=== PATIENT | female | born 1965 | race Hispanic/Latino ===

== ENCOUNTER → 2018-10-04 | Day surgery (SDC) | payer OTHER ==
[~2018-10-04] MED LIST: FENTANYL CITRATE/PF 100MCG/2 ML INJ ONE; METFORMIN HCL500 MG PO; MIDAZOLAM HCL 2 MG/2 ML VIAL ONE; PROPOFOL IV EMULSION 10 MG/ML 50 ML VIAL ONE; blood pressure pill
--- OUTSIDE RECORDS SUMMARY | 2018-10-04 07:01 | XMS REPORT | Clinical Summary ---
Author Author [facility] Organization [facility] Address Unknown Phone Unavailable Care Team Providers Care Kitman Name Role Phone Abbie Law DDS 6 Chance Jenkins MD PCP Allergies Comments Active Allergy Reactions Severity Noted Date Enalapril Cough 12/14/2010 Medications End Date Status Medication Sig Dispensed Refills Start Date Active ALCOHOL SWABS Apply to 100 Each 2 PadMIndications: Diabetes affected 3 mellitus area. Active blood glucose test 2 times 50 Each 3 stripsIndications: weekly to 6 Diabetes mellitus type 2, test blood uncontrolled, without sugar. complications Active lancets 28 2 times 100 Each 1 gaugeIndications: weekly. 6 Diabetes mellitus type 2, uncontrolled, without complications Active lancetsIndications: As directed. 1 Box 12 Diabetes mellitus type 2, 6 uncontrolled, without complications Active blood glucose True Test 1 Kit 0 meterIndications: Glucose Meter 6 Diabetes mellitus type 2, Use as uncontrolled, without directed.. complications Active lancets (TRUEPLUS 2 times 100 Each 5 LANCETS) 28 daily. 7 gaugeIndications: Controlled type 2 diabetes mellitus without complication, without long-term current use of insulin Active blood glucose meter (TRUE Use as 1 Kit 0 METRIX GLUCOSE directed.. 7 METER)Indications: Uncontrolled type 2 diabetes mellitus without complication, without long-term current use of insulin Active blood glucose (TRUE 2 times 50 Each 3 METRIX GLUCOSE TEST weekly to 7 STRIP) test test blood stripsIndications: sugar. Uncontrolled type 2 diabetes mellitus without complication, without long-term current use of insulin Active blood glucose (TRUETEST 2 times daily 100 Each 5 TEST STRIPS) test 8 stripsIndications: Controlled type 2 diabetes mellitus without complication, without long-term current use of insulin Active omeprazole (PRILOSEC) 20 Take 1 90 capsule 1 mg delayed release capsule by 8 capsuleIndications: GERD mouth daily. without esophagitis Active fluticasone (FLONASE Use 1 [place] 16 g 1 ALLERGY RELIEF) 50 in each 8 mcg/actuation nasal nostril sprayIndications: daily. Allergic rhinitis, unspecified seasonality, unspecified trigger Active atorvastatin (LIPITOR) 10 Take 1 tablet 90 tablet 1 mg tabletIndications: by mouth at 9 Uncontrolled type 2 bedtime diabetes mellitus without nightly. complication, without long-term current use of insulin Active hydrocortisone 2.5 % Apply to 20 g 2 topical creamIndications: affected area 9 Rectal itching 2 times daily For hemorrhoids. Active glimepiride (AMARYL) 2 mg Take 1.5 135 tablet 1 tabletIndications: tablets by 9 Uncontrolled type 2 mouth every diabetes mellitus without morning complication, without (before long-term current use of breakfast). insulin Active losartan (COZAAR) 50 mg Take 0.5 45 tablet 1 tabletIndications: tablets by 9 Essential hypertension mouth daily. with goal blood pressure less than 130/80, Uncontrolled type 2 diabetes mellitus without complication, without long-term current use of insulin Active pioglitazone (ACTOS) 15 Take 1 tablet 90 tablet 1 mg tabletIndications: by mouth 9 Uncontrolled type 2 daily. diabetes mellitus without complication, without long-term current use of insulin Active metFORMIN (GLUCOPHAGE-XR) Take 1 tablet 180 tablet 1 500 mg ER extended by mouth 2 9 release times daily. tabletIndications: Uncontrolled type 2 diabetes mellitus without complication, without long-term current use of insulin Active polyethylene glycol Add lukewarm 4000 mL 0 (GOLYTELY) [id number] drinking 9 -5.86 gram oral water to the solutionIndications: Iron fill pedro (4 deficiency anemia, liters) and unspecified iron shake. Drink deficiency anemia type as directed by your doctor.. 03/29/2018 Discontinued LANCETSIndications: use twice 100 5 Diabetes mellitus type daily 0 II, controlled 03/29/2018 Discontinued blood glucose test Use 3x/week 1 Box 12 (PRECISION XTRA TEST 3 STRIPS) stripsIndications: Well woman exam with routine gynecological exam 03/29/2018 Discontinued blood glucose test 2 times daily 100 Each 2 stripsIndications: True Test 6 Diabetes mellitus type 2, Test Strips. uncontrolled, without Check 2-3 complications times per day - Fasting or 2 hrs postprandial. 03/29/2018 Discontinued clotrimazole (LOTRIMIN) 1 Apply 1-2 30 mL 3 % external drops to 6 solutionIndications: affected Dermatophytosis of nail nails 2 times a day. Use a nail file to keep nails thin. Label in Japanese. 03/29/2018 Discontinued meclizine (ANTIVERT) 25 Take 1 tablet 20 tablet 0 mg TabIndications: by mouth 3 6 Dizziness, nonspecific times daily as needed (dizziness.) . May cause sleepiness. Japanese label. 03/29/2018 Discontinued acetaminophen (TYLENOL) Take 1 tablet 30 tablet 0 500 mg tabletIndications: by mouth 6 Acute nonintractable every 6 hours headache, unspecified as needed for headache type Pain. 03/29/2018 Discontinued ofloxacin (OCUFLOX) 0.3 % Instill 5 5 mL 0 ophthalmic Drops in 7 solutionIndications: right ear Otitis externa of right daily for 10 ear, unspecified days.. chronicity, unspecified type 11/06/2017 Discontinued blood glucose (TRUETEST 2 times daily 100 Each 5 TEST STRIPS) test to test blood 7 stripsIndications: sugar. Controlled type 2 diabetes mellitus without complication, without long-term current use of insulin 03/29/2018 Discontinued omeprazole (PRILOSEC) 20 Take 1 90 capsule 1 mg delayed release capsule by 7 capsuleIndications: GERD mouth daily. without esophagitis 03/29/2018 Discontinued atorvastatin (LIPITOR) 10 Take 1 tablet 90 tablet 1 mg tabletIndications: by mouth at 7 Uncontrolled type 2 bedtime diabetes mellitus without nightly. complication, without long-term current use of insulin 02/27/2018 Discontinued metFORMIN (GLUCOPHAGE-XR) Take 2 360 tablet 2 500 mg ER extended tablets by 7 release mouth 2 times tabletIndications: daily. Uncontrolled type 2 diabetes mellitus without complication, without long-term current use of insulin 01/08/2018 Discontinued glimepiride (AMARYL) 2 mg Take 1.5 135 tablet 2 tabletIndications: Poorly tablets by 7 controlled type 2 mouth every diabetes mellitus morning (before breakfast). 03/29/2018 Discontinued benzonatate (TESSALON Take 1 20 capsule 0 PERLES) 100 mg capsule by 7 capsuleIndications: Acute mouth 3 times bronchitis, unspecified daily as organism needed for Cough. 11/06/2017 Discontinued losartan (COZAAR) 50 mg Take 0.5 15 tablet 0 tabletIndications: tablets by 8 Essential hypertension mouth daily. with goal blood pressure less than 130/80, Uncontrolled type 2 diabetes mellitus without complication, without long-term current use of insulin 12/21/2017 Discontinued losartan (COZAAR) 50 mg Take 1/2 15 tablet 0 tabletIndications: tablet by 8 Essential hypertension mouth daily. with goal blood pressure NO REFILLS less than 130/80, WITHOUT APPT. Uncontrolled type 2 First Notice. diabetes mellitus without complication, without long-term current use of insulin 11/21/2017 fluconazole (DIFLUCAN) Take 1 tablet 1 tablet 1 200 mg tabletIndications: by mouth once 8 Vaginal itching for 1 dose May repeat dose in three days if symptoms have not improved. 05/24/2018 Discontinued hydrocortisone 2.5 % Apply to 20 g 0 topical creamIndications: external 8 Vaginal itching vaginal area twice a day as needed for vaginal itching. 03/29/2018 Discontinued losartan (COZAAR) 50 mg Take 1/2 of a 45 tablet 0 tabletIndications: tablet by 8 Essential hypertension mouth with goal blood pressure daily.No less than 130/80, refills Uncontrolled type 2 without PCP diabetes mellitus without appt.. complication, without long-term current use of insulin 03/29/2018 Discontinued glimepiride (AMARYL) 2 mg Take 1 and 135 tablet 0 tabletIndications: Poorly 1/2 tablets 8 controlled type 2 by mouth diabetes mellitus every morning (before breakfast) Schedule PCP appointment for refills.. 03/29/2018 Discontinued metFORMIN (GLUCOPHAGE-XR) Take 2 360 tablet 0 500 mg ER extended tablets by 8 release mouth 2 times tabletIndications: daily Until Uncontrolled type 02 March 2018 diabetes mellitus without Appointment complication, without with PCP. long-term current use of insulin 09/25/2018 tropicamide (MYDRIACYL) Instill 1 15 mL 0 0.5 % ophthalmic Drop in each 8 solutionIndications: eye once as Uncontrolled type 2 needed for up diabetes mellitus without to 1 dose complication, without (for poor long-term current use of retina scan insulin image). 05/24/2018 Discontinued metFORMIN (GLUCOPHAGE-XR) Take 2 360 tablet 1 500 mg ER extended tablets by 8 release mouth 2 times tabletIndications: daily Until Uncontrolled type 02 March 2018 diabetes mellitus without Appointment complication, without with PCP. long-term current use of insulin 05/24/2018 Discontinued losartan (COZAAR) 50 mg Take 1/2 of a 45 tablet 1 tabletIndications: tablet by 8 Essential hypertension mouth with goal blood pressure daily.No less than 130/80, refills Uncontrolled type 2 without PCP diabetes mellitus without appt.. complication, without long-term current use of insulin 05/24/2018 Discontinued glimepiride (AMARYL) 2 mg Take 1.5 135 tablet 1 tabletIndications: tablets by 8 Uncontrolled type 2 mouth every diabetes mellitus without morning complication, without (before long-term current use of breakfast). insulin 05/24/2018 Discontinued atorvastatin (LIPITOR) 10 Take 1 tablet 90 tablet 1 mg tabletIndications: by mouth at 8 Uncontrolled type 2 bedtime diabetes mellitus without nightly. complication, without long-term current use of insulin 04/02/2018 Discontinued ciclesonide (ZETONNA) 37 Use 1 [place] 6.1 g 1 mcg/actuation nasal HFA in each 8 inhalerIndications: nostril Uncontrolled type 2 daily. diabetes mellitus without complication, without long-term current use of insulin 05/24/2018 Discontinued losartan (COZAAR) 50 mg Take 1/2 of a 45 tablet 1 tabletIndications: tablet by 9 Essential hypertension mouth with goal blood pressure daily.No less than 130/80, refills Uncontrolled type 2 without PCP diabetes mellitus without appt.. complication, without long-term current use of insulin 07/19/2018 Discontinued pioglitazone (ACTOS) 30 Take 1 tablet 90 tablet 1 mg tabletIndications: by mouth 9 Uncontrolled type 2 daily. diabetes mellitus without complication, without long-term current use of insulin 07/19/2018 Discontinued metFORMIN (GLUCOPHAGE-XR) Take 2 360 tablet 1 500 mg ER extended tablets by 9 release mouth 2 times tabletIndications: daily. Uncontrolled type 2 diabetes mellitus without complication, without long-term current use of insulin Active Problems Problem Noted Date Iron deficiency - refered for colonoscopy 07/20/2018 Vitamin D deficiency 07/20/2018 Fatigue 07/19/2018 Elevated CO2 level 05/24/2018 Tonsillar enlargement 02/02/2017 Globus sensation 01/17/2017 Odynophagia 01/17/2017 Lingual tonsil hypertrophy 09/06/2016 Hypertriglyceridemia 07/29/2015 Diabetes mellitus type 2, uncontrolled, without complications 07/29/2015 Preventative health care 07/29/2015 Essential hypertension 07/29/2015 BMI 50.0-59.9, adult 10/15/2014 Myopia with astigmatism and presbyopia 04/01/2014 Diabetes mellitus type 2 without retinopathy 04/01/2014 Abdominal pain 02/26/2014 Decay, teeth 03/18/2013 Morbid obesity with body mass index of 45.0-49.9 in adult 12/10/2012 Plantar fasciitis 01/28/2011 Poorly controlled type 2 diabetes mellitus 01/28/2011 History of cholecystectomy 11/17/2008 Metabolic syndrome 06/27/2007 Tinea unguium 01/09/2007 Allergic rhinitis, cause unspecified 01/09/2007 GERD (gastroesophageal reflux disease) 07/31/2006 High triglycerides Fatty liver Encounters Care Team Description Date Type Specialty Chance Jenkins Jr., MD 09/26/2018 Hospital Encounter 09/26/2018 Travel Paty Tierney Abnormal Cancer Screening (anemia) 08/01/2018 Telephone Chance Jenkins Jr., MD Iron deficiency anemia, unspecified iron deficiency anemia type (Primary Dx) 07/20/2018 Orders Only Family Practice Chance Jenkins Jr., MD Fatigue, unspecified type (Primary Dx); Uncontrolled type 2 diabetes mellitus without complication, without long-term current use of insulin 07/19/2018 Office Visit [facility] Zonia Baltazar Interpretation 07/19/2018 Telephone 07/19/2018 Travel Chance Jenkins Jr., MD Snoring (Primary Dx); Uncontrolled type 2 diabetes mellitus without complication, without long-term current use of insulin; Essential hypertension with goal blood pressure less than 130/80; Elevated CO2 level; Rectal itching 05/24/2018 Office Visit [facility] Winston Dumont Interpretation 05/24/2018 Telephone Maty Hubbard MD Breast cancer screening 05/04/2018 Ancillary Radiology Procedure 05/04/2018 Travel Maty Hubbard MD Uncontrolled type 2 diabetes mellitus without complication, without long-term current use of insulin (Primary Dx); Essential hypertension with goal blood pressure less than 130/80; Dizziness, nonspecific; GERD without esophagitis; Dietary counseling for Above / Below Normal BMI; Exercise counseling for Above Normal BMI Only!; Breast cancer screening; Colon cancer screening; Flu vaccine need 03/29/2018 Office Visit [facility] Maty Hubbard MD Allergic rhinitis, unspecified seasonality, unspecified trigger (Primary Dx); Uncontrolled type 2 diabetes mellitus without complication, without long-term current use of insulin 03/29/2018 Refill [facility] Chance Jenkins Jr., MD Uncontrolled type 2 diabetes mellitus without complication, without long-term current use of insulin 02/27/2018 Refill [facility] Chance Jenkins Jr., MD Uncontrolled type 2 diabetes mellitus without complication, without long-term current use of insulin 02/16/2018 Refill [facility] Candy Piedra RN Information Only 02/09/2018 Telephone [facility] Chance Jenkins Jr., MD Poorly controlled type 2 diabetes mellitus 01/15/2018 Refill [facility] Chance Jenkins Jr., MD Poorly controlled type 2 diabetes mellitus 01/08/2018 Refill [facility] Chance Jenkins Jr., MD Essential hypertension with goal blood pressure less than 130/80; Uncontrolled type 2 diabetes mellitus without complication, without long-term current use of insulin 12/21/2017 Refill [facility] Chance Jenkins Jr., MD Labs Only (Needs lab appointment for refill) 12/15/2017 Telephone [facility] Chance Jenkins Jr., MD Essential hypertension with goal blood pressure less than 130/80; Uncontrolled type 2 diabetes mellitus without complication, without long-term current use of insulin 12/09/2017 Refill Family Practice Loly Avalos NP Vaginal itching (Primary Dx); Type 2 diabetes mellitus with complication, without long-term current use of insulin; Uncontrolled Hypertension 11/20/2017 Same Day Family Practice Chance Jenkins Jr., MD Essential hypertension with goal blood pressure less than 130/80; Uncontrolled type 2 diabetes mellitus without complication, without long-term current use of insulin; Controlled type 2 diabetes mellitus without complication, without long-term current use of insulin 11/06/2017 Refill Family Practice after 10/03/2017 Immunizations Name Administration Dates Next Due Influenza Vaccine 03/15/2014, 12/04/2012, 03/16/2010, 02/26/2009, 06/27/2007 Influenza Vaccine, 03/15/2017 Seasonal, Injectable Influenza, 03/29/2018 Vaccine<FLUCELVAX>(Multi- Dose) Pneumoccoccal 08/11/2009 Tdap Tetanus, diphtheria, 12/04/2012 acellular pertussis Vaccine Family History Medical History Relation Name Comments Cancer Mother cervical Diabetes Mother Relation Name Status Comments Brother Alive Brother Alive Brother Alive Daughter Alive Father Alive Maternal Grandfather Maternal Grandmother Mother uterine (Age 62) Paternal Grandfather Paternal Grandmother Sister Alive Sister Alive Sister Alive Sister Alive Sister Alive Sister Alive Sister Alive Sister Alive Son Alive Son Alive Social History Date Tobacco Use Types Packs/Day Years Used Never Smoker Smokeless Tobacco: Never Used Tobacco Cessation: Counseling Given: No Drinks/Week oz/Week Comments Alcohol Use No Food Insecurity Answer Date Recorded Within the past 12 months, you worried that your Never true 03/29/2018 food would run out before you got money to buy more. Within the past 12 months, the food you bought Never true 03/29/2018 just didn't last and you didn't have money to get more. Sex Assigned at Date Recorded Not on file Industry Job Start Date Occupation Not on file Not on file Not on file Travel End Travel History Travel Start No recent travel history available. Last Filed Vital Signs Reading Time Taken Comments Vital Sign 137/67 07/19/2018 2:53 PM CDT Blood Pressure 82 07/19/2018 2:53 PM CDT Pulse 36.3 C (97.4 F) 07/19/2018 2:53 PM CDT Temperature 20 07/19/2018 2:53 PM CDT Respiratory Rate - - Oxygen Saturation - - Inhaled Oxygen Concentration 116.5 kg (256 lb 12.8 oz) 07/19/2018 2:53 PM CDT Weight 152.4 cm (5') 07/19/2018 2:53 PM CDT Height 50.15 07/19/2018 2:53 PM CDT Body Mass Index Plan of Treatment Health Maintenance Due Date Last Done Comments DM Foot Exam (Yearly) 11/20/2018 11/20/2017, 02/01/2017, 12/04/2012, Additional history exists Cervical Cancer Scrn (3 12/16/2018 12/17/2015 (Previously completed - Yrs) External), 12/04/2012, 07/13/2009 Breast Cancer Scrn 05/04/2019 05/04/2018, 10/28/2016, 10/19/2015, (Yearly) Additional history exists Colorectal Cancer Scrn 05/04/2019 05/04/2018 Annual (FIT/FOBT) Age 50 to 75 DM Retinal Exam (Yearly) 05/04/2019 05/04/2018, 04/14/2017, 03/10/2016, Additional history exists DM HGBA1C (Yearly) 07/20/2019 07/19/2018, 03/29/2018, 04/14/2017, Additional history exists Goals Goal Patient Associated Recent Progress Patient-Stat Author Goal Type Problems ed? Eat Healthy Lifestyle Not on track Qian Calhoun, (03/29/2018) Dianna Frances Procedures Comments Procedure Name Priority Date/Time Associated Diagnosis PULMONARY - 6 MINUTE WALK Routine 09/26/2018 EXERCISE TEST - COMPLEX 3:19 PM CDT PULMONARY FUNCTION TEST Routine 09/26/2018 2:25 PM CDT HEMOGLOBIN A1C Routine 07/19/2018 Uncontrolled type 2 3:45 PM CDT diabetes mellitus without complication, without long-term current use of insulin BASIC METABOLIC PANEL Routine 07/19/2018 Fatigue, unspecified type 3:45 PM CDT VIT D, 25-HYDROXY Routine 07/19/2018 Fatigue, unspecified type 3:45 PM CDT VITAMIN B12 Routine 07/19/2018 Fatigue, unspecified type 3:45 PM CDT FOLATE, RBC Routine 07/19/2018 Fatigue, unspecified type 3:45 PM CDT IRON PROFILE Routine 07/19/2018 Fatigue, unspecified type 3:45 PM CDT OPHTHALMOLOGY RETINAL Routine 05/04/2018 Uncontrolled type 2 SCAN 12:52 PM [employer] diabetes mellitus without complication, without long-term current use of insulin FECAL OCCULT BLOOD Routine 05/04/2018 Colon cancer screening 9:57 AM [employer] MAMMOGRAM BILAT SCREEN Routine 05/04/2018 Breast cancer screening DIGITAL 9:11 AM [employer] LIPID PROFILE Routine 03/29/2018 Uncontrolled type 2 10:10 AM [employer] diabetes mellitus without complication, without long-term current use of insulin MICROALBUMIN / CREATININE Routine 03/29/2018 Uncontrolled type 2 URINE RATIO 10:10 AM [employer] diabetes mellitus without complication, without long-term current use of insulin THYROID STIMULATING Routine 03/29/2018 Uncontrolled type 2 HORMONE (TSH) 10:10 AM [employer] diabetes mellitus without complication, without long-term current use of insulin COMPREHENSIVE METABOLIC Routine 03/29/2018 Uncontrolled type 2 PANEL 10:10 AM [employer] diabetes mellitus without complication, without long-term current use of insulin HEMOGLOBIN A1C Routine 03/29/2018 Uncontrolled type 2 10:10 AM [employer] diabetes mellitus without complication, without long-term current use of insulin HEMOCCULT KIT FOR Routine 03/29/2018 Colon cancer screening SPECIMEN COLLECTION AT 9:47 AM [employer]ION [employer]ER HOME BASIC METABOLIC PANEL Routine 12/21/2017 Encounter for monitoring 1:28 PM CDT [place]-inhibitor therapy DIABETIC FOOT EXAM Routine 11/20/2017 Type 2 diabetes mellitus 8:33 AM CDT with complication, without long-term current use of insulin after 10/03/2017 Results * PULMONARY - 6 MINUTE WALK EXERCISE TEST - COMPLEX (09/26/2018 3:19 PM CDT) Specimen Performing Organization Address [facility] Phone Number SMS * PULMONARY FUNCTION TEST (09/26/2018 2:25 PM CDT) Specimen Performing Organization Address [facility] Phone Number SMS * RBC FOLIC ACID (07/19/2018 3:45 PM CDT) RBC Folic Acid 1237 LABORATORY Reference range: >498 CORPOR[employer] OF Unit: ng/mL ALO Hematocrit 34.3 LABORATORY Reference range: 34.0 to 46.6 CORPORATION OF Unit: % ALO Folate, 424.4 LABORATORY Hemolysate Reference range: Not Estab. CORPORATION OF Unit: ng/mL ALO Specimen Blood Products (Lab Use Only) - BLOOD Performing Organization Address [facility] Phone Number [id number] OF [address] [place] [id number] ALO 145 * VIT D, 25-HYDROXY (07/19/2018 3:45 PM CDT) Vit D, 17.9 (L) 30 - 100 ng/mL BT MAIN-STATION 25-Hydroxy Comment: 4 Vitamin D deficiency has been defined by the [place] of Medicine and Endocrine Society guideline as a level of serum 25-OH Vitamin D less than 20 ng/mL. The Endocrine Society further defines Vitamin D insufficiency as a level between 21 and 29 ng/mL and sufficiency as a level between 30 and 100 ng/mL. Specimen Performing Organization Address [place] Phone Number MISYS BT MAIN-STATION 4 * HEMOGLOBIN A1C (07/19/2018 3:45 PM CDT) Only the most recent of 2 results within the time period is included. Hemoglobin A1c 7.6 (H) 4.3 - 6.1 % BT DIAGNOSTIC IMMUNOLOGY Est Average 171.4 mg/dL BT DIAGNOSTIC Gluc IMMUNOLOGY Specimen Blood Performing Organization Address [facility] Phone Number MISYS BT DIAGNOSTIC IMMUNOLOGY * VITAMIN B12 (07/19/2018 3:45 PM CDT) Vitamin B12 616 211 - 911 pg/mL BT MAIN-STATION 1 Specimen Blood Performing Organization Address [facility] Phone Number MISYS BT MAIN-STATION 1 * IRON PROFILE (07/19/2018 3:45 PM CDT) Iron 24 (L) 50 - 212 ug/dL BT MAIN-STATION 1 TIBC 664 (H) 250 - 450 ug/dL BT MAIN-STATION 1 % Iron Sat 4 % BT MAIN-STATION 1 Specimen Blood Performing Organization Address [facility] Phone Number MISYS BT MAIN-STATION 1 * BASIC METABOLIC PANEL (07/19/2018 3:45 PM CDT) Only the most recent of 2 results within the time period is included. CO2 27 21 - 31 mmol/L BT MAIN-STATION 1 Chloride 102 98 - 107 mmol/L BT MAIN-STATION 1 Potassium 4.2 3.5 - 5.1 mmol/L BT MAIN-STATION 1 Sodium 139 136 - 145 mmol/L BT MAIN-STATION 1 Glucose 92 70 - 110 mg/dL BT MAIN-STATION 1 BUN 11 7 - 25 mg/dL BT MAIN-STATION 1 Creatinine 0.40 (L) 0.6 - 1.2 mg/dL BT MAIN-STATION 1 Anion Gap 10 BT MAIN-STATION 1 Calcium 9.4 8.6 - 10.3 mg/dL BT MAIN-STATION 1 GFR, Estimated >60 mL/min/1.73 m2 BT MAIN-STATION 1 eGFR If Africn >60 mL/min/1.73 m2 BT MAIN-STATION Am 1 Specimen Blood Performing Organization Address [facility] Phone Number MISYS BT MAIN-STATION 1 * OPHTHALMOLOGY RETINAL SCAN (05/04/2018 12:52 PM [employer]ION [employer]ER) RETINAL NORMAL IRIS SCAN-FINAL RESULT Right Diabetic None IRIS Retinopathy Right Macular None IRIS Edema Right Other None IRIS Suspected Conditions Right Image Gradeable Image IRIS Quality Left Diabetic None IRIS Retinopathy Left Macular None IRIS Edema Left Other None IRIS Suspected Conditions Left Image Gradeable Image IRIS Quality Specimen Narrative Performed At Retinal Study Result for MATTHEW DAVIS IRIS MATTHEW DAVIS, a 52 y/o, F (: 1965, ) presented to [facility] on 05-04-2018 for a retinal imaging study of the left and right eyes. Based on the findings of the study, the following is recommended for MATTHEW DAVIS Normal Scan: Please advise the patient to return for another scan in 1 year. Interpreting Provider's Comments:No comments provided Right Eye Findings: Normal Result.Negative for Diabetic Retinopathy. Left Eye Findings: Normal Result.Negative for Diabetic Retinopathy. This result was electronically signed by Enoc Mayberry MD, , Taxonomy: [id number] on 05-04-2018 05:52:22 [facility] time. NOTE:Any pathology noted on this diabetic retinal evaluation should be confirmed by an appropriate ophthalmic examination. Performing Organization Address City/State/Zipcode Phone Number IRIS * OCCULT BLOOD ICT (05/04/2018 9:57 AM [facility]) Occult Blood Negative NEG [facility] ICT Specimen Stool Performing Organization Address City/State/Zipcode Phone Number [facility] * MAMMOGRAM BILAT SCREEN DIGITAL (05/04/2018 9:11 AM [facility]) Specimen Impressions Performed At IMPRESSION: BENIGN SMS There is no mammographic evidence of malignancy. A 1 year screening mammogram is recommended. I have reviewed the study and agree with the findings in the report. This document has been electronically signed. Vashti carballo,cara/hilario:05/04/2018 09:55:38 Research Psychologist: Ms. Devora Phan RT(R)(M), [facility] letter sent: Benign Exam Mammogram BI-RADS: 2 Benign G0202 z12.31 Narrative Performed At #[id number] - MAMMOGRAM BILAT SCREEN DIGITAL SMS BILATERAL DIGITAL SCREENING MAMMOGRAM WITH CAD: 05/04/2018 CLINICAL: Screening for malignancy. Comparison is made to exams dated:10/28/2016, 10/19/2015, 10/15/2014, 04/11/2013, and 01/31/2012 [facility]. There are scattered fibroglandular elements in both breasts that could obscure a lesion on mammography. Current study was also evaluated with a Computer Aided Detection (CAD) system. There is a benign calcification in both breasts. No significant masses, calcifications, or other findings are seen in either breast. Procedure Note Interface, Rad/Mammog In - 05/04/2018 10:46 AM [facility] #[id number] - MAMMOGRAM BILAT SCREEN DIGITAL BILATERAL DIGITAL SCREENING MAMMOGRAM WITH CAD: 05/04/2018 CLINICAL: Screening for malignancy. Comparison is made to exams dated: 10/28/2016, 10/19/2015, 10/15/2014, 04/11/2013, and 01/31/2012 [facility]. There are scattered fibroglandular elements in both breasts that could obscure a lesion on mammography. Current study was also evaluated with a Computer Aided Detection (CAD) system. There is a benign calcification in both breasts. No significant masses, calcifications, or other findings are seen in either breast. IMPRESSION IMPRESSION: BENIGN There is no mammographic evidence of malignancy. A 1 year screening mammogram is recommended. I have reviewed the study and agree with the findings in the report. This document has been electronically signed. Vashti carballo,lg/ulisesrad:05/04/2018 09:55:38 Research Psychologist: Ms. Devora Phan RT(R)(M), [facility] letter sent: Benign Exam Mammogram BI-RADS: 2 Benign G0202 z12.31 Performing Organization Address [facility] Number SMS * MICROALBUM, URINE (03/29/2018 10:10 AM [facility]) Microalbum, <0.7 0.0 - 29.0 mg/dL [facility] Random 1 Creatinine, 56.6 20 - 320 mg/dL [facility] Urine 1 Urine Unable to calculate, 0 - 29 mg/g UCR [facility] Microalbumin parameters incomplete 4 Comment: To minimize intra-individual variation, analysis of three random urine samples collected over the course of a week is recommended. Specimen Performing Organization Address City/[facility] Phone Number [facility] 1 [facility] 4 * COMPREHENSIVE METABOLIC PANEL(DBIL NOT INCLUDED) (03/29/2018 10:10 AM [facility]) Albumin 3.7 3.7 - 5.3 g/dL [facility] 1 Calcium 9.2 8.6 - 10.3 mg/dL [facility] 1 CO2 32 (H) 21 - 31 mmol/L [facility] 1 Chloride 101 98 - 107 mmol/L [facility] 1 Creatinine 0.40 (L) 0.6 - 1.2 mg/dL [facility] 1 Glucose 138 (H) 70 - 110 mg/dL [facility] 1 Alkaline 103 34 - 104 U/L [facility] Phosphatase, S 1 Potassium 4.4 3.5 - 5.1 mmol/L [facility] 1 Sodium 137 136 - 145 mmol/L [facility] 1 ALT 20 7 - 52 U/L [facility] 1 AST (SGOT) 18 13 - 39 U/L [facility] 1 BUN 10 7 - 25 mg/dL [facility] 1 Bilirubin, 0.3 0.2 - 1.2 mg/dL [facility] Total 1 Protein, Total, 6.9 6.0 - 8.3 g/dL [facility] Serum 1 GFR, Estimated >60 mL/min/1.73 m2 [facility] 1 eGFR If Africn >60 mL/min/1.73 m2 [facility] Am 1 Anion Gap 4 [facility] 1 Specimen Blood Performing Organization Address [facility] Phone Number MISYS [facility] 1 * TSH (03/29/2018 10:10 AM [facility]) TSH 2.31 0.57 - 3.74 uIU/mL [facility] 1 Specimen Blood Performing Organization Address [facility] Phone Number MISYS [facility] 1 * LIPID PROFILE (03/29/2018 10:10 AM [facility]) Cholesterol 126 mg/dL [facility] Comment: 1 REFERENCE RANGE: Desirable: <200 mg/dL Borderline: 200-240 mg/dL High Risk: >240 mg/dL Triglyceride 128 <150 mg/dL [facility] Comment: 1 REFERENCE RANGE: Normal: <150 mg/dL Borderline High: 150-199 mg/dL High: 200-499 mg/dL Very High: >fp=395 mg/dL HDL 49 mg/dL [facility] Comment: 1 Increased CHD risk: <40 mg/dL Decreased CHD risk: >60 mg/dL LDL 51 mg/dL [facility] Comment: 1 REFERENCE RANGE: Optimal: <100 mg/dL Near Optimal: 100-129 mg/dL Borderline High: 130-159 mg/dL High: 160-189 mg/dL Very High: >jl=826 mg/dL Specimen Blood Performing Organization Address [facility] Phone Number MISYS [facility] 1 * DIABETIC FOOT EXAM (11/20/2017 8:33 AM CDT) Narrative Performed At Loly Avalos NP 11/20/20179:00 AM Diabetic Foot Exam was performed at 11/20/2017 8:41 AM.Right foot sensation is normal, right foot pulses are normal, right foot appearance is normal.Left foot sensation is normal,left foot pulses are normal, left foot appearance is normal. after 10/03/2017 Insurance Type Payer Benefit Subscriber ID Effective Phone Address Plan / Dates Group [employer] xxxxxxxxxx 2018-0 [address] [address] [place] [address]
--- OUTSIDE RECORDS SUMMARY | 2018-10-04 07:01 | XMS REPORT ---
[facility] Address Unknown Phone Unavailable Care Team Providers Care Fall Internship Name Role Phone Unavailable Unavailable Problems This patient has no known problems. Allergies, Adverse Reactions, Alerts This patient has no known allergies or adverse reactions. Medications This patient has no known medications. Encounters Start Date/Time End Date/Time Encounter Type Admission Type Attending [facility] Care Department Encounter ID 2018-09-26 14:18:09 2018-09-26 14:18:[address] [facility] [id number] 2018-08-30 00:00:00 2018-08-30 00:00:[address] [facility] [id number] 2018-07-30 00:00:00 2018-07-30 00:00:[address] [facility] [id number] 2018-07-19 15:53:43 2018-07-19 15:53:[address] [facility] [id number] 2018-07-19 14:53:37 2018-07-19 14:53:[address] [facility] [id number] 2018-07-17 00:00:00 2018-07-17 00:00:[address] [facility] [id number] 2018-05-24 15:48:48 2018-05-24 15:48:[address] [facility] [id number] 2018-05-04 10:05:00 2018-05-04 10:05:[address] [facility] [id number] 2018-05-04 09:37:46 2018-05-04 09:37:[address] [facility] [id number] 2018-05-04 08:33:06 2018-05-04 08:33:[address] [facility] [id number] 2018-03-29 10:15:01 2018-03-29 10:15:[address] [facility] [id number] 2018-03-29 09:11:33 2018-03-29 09:11:[address] [facility] [id number] 2018-03-26 00:00:00 2018-03-26 00:00:[address] [facility] [id number] 2018-02-09 00:00:00 2018-02-09 00:00:[address] [facility] [id number] 2017-12-21 13:33:09 2017-12-21 13:33:[address] [facility] [id number] 2017-12-09 00:00:00 2017-12-09 00:00:[address] [facility] [id number] 2017-11-20 08:28:30 2017-11-20 08:28:[address] [facility] [id number] 2017-06-21 00:00:00 2017-06-21 00:00:[address] [facility] [id number] 2017-06-07 00:00:00 2017-06-07 00:00:[address] [facility] [id number] 2017-04-28 11:17:19 2017-04-28 11:17:[address] [facility] [id number] 2017-04-20 00:00:00 2017-04-20 00:00:[address] [facility] [id number] 2017-04-14 08:55:44 2017-04-14 08:55:[address] [facility] [id number] 2017-04-14 08:20:11 2017-04-14 08:20:[address] [facility] [id number] 2017-04-14 07:49:57 2017-04-14 07:49:[address] [facility] [id number] 2017-04-06 00:00:00 2017-04-06 00:00:[address] [facility] [id number] 2017-04-04 00:00:00 2017-04-04 00:00:[address] [facility] [id number] 2017-03-29 10:44:39 2017-03-29 10:44:[address] [facility] [id number] 2017-03-15 08:23:26 2017-03-15 08:23:[address] [facility] [id number] 2017-02-28 08:12:36 2017-02-28 08:12:[address] [facility] [id number] 2017-02-13 10:51:39 2017-02-13 10:51:[address] [facility] [id number] 2017-02-01 09:56:38 2017-02-01 09:56:[address] [facility] [id number] 2017-02-01 09:19:19 2017-02-01 09:19:[address] [facility] [id number] 2017-01-17 09:23:04 2017-01-17 09:23:[address] [facility] [id number] 2016-09-05 13:37:55 2016-09-05 13:37:[address] [facility] [id number] 2016-09-05 13:32:07 2016-09-05 13:32:[address] [facility] [id number]
[2018-10-04 09:35] VITALS: BP 127/81
== END | disposition home or self-care (01) ==
LOC: OR 06:58
PROVIDERS: ATTEND Internal Medicine Gastroenterology
DX: Z12.11 Encounter for screening for malignant neoplasm of colon (principal); K44.9 Diaphragmatic hernia without obstruction or gangrene; K29.70 Gastritis, unspecified, without bleeding; R12 Heartburn; E66.01 Morbid (severe) obesity due to excess calories; Z68.42 Body mass index [BMI] 45.0-49.9, adult; E11.9 Type 2 diabetes mellitus without complications; I10 Essential (primary) hypertension; Z79.84 Long term (current) use of oral hypoglycemic drugs
CPT/HCPCS: 36415; 43239; 81025; 82948; 88305; 88312; J2250; J2704; 45378